=== PATIENT | male | born 1940 | race Caucasian/White ===

== ENCOUNTER 2019-02-23 20:33 | Outpatient (CLI) | payer MEDICARE, OTHER | END 2019-02-23 20:34 | disposition short-term general hospital (02) | LOC: EMS 20:33 | PROVIDERS: ATTEND Surgery | DX: R53.1 Weakness (principal) | CPT/HCPCS: A0425; A0429 ==

== ENCOUNTER 2019-05-03 14:27 | Outpatient (CLI) | payer MEDICARE, OTHER ==
[2019-05-03 14:48] LABS: CALCIUM 9.4 mg/dL (8.5-10.3)
== END 2019-05-03 14:28 | disposition home or self-care (01) ==
LOC: LAB 14:27
PROVIDERS: ATTEND Physician Assistant
DX: E87.5 Hyperkalemia (principal)
CPT/HCPCS: 36415; 80048

== ENCOUNTER 2021-03-01 23:52 | Outpatient (CLI) | payer MEDICARE, OTHER | END 2021-03-01 23:53 | disposition short-term general hospital (02) | LOC: EMS 23:52 | DX: R06.00 Dyspnea, unspecified (principal) | CPT/HCPCS: A0425; A0429; A0888 ==

== ENCOUNTER 2021-05-18 15:49 | Outpatient (CLI) | payer MEDICARE, OTHER | END 2021-05-18 15:50 | disposition home or self-care (01) | LOC: COV 15:49 | PROVIDERS: ATTEND Family Medicine | DX: Z20.822 Contact with and (suspected) exposure to COVID-19 (principal) ==

== ENCOUNTER 2024-01-15 05:28 | Emergency (ER) | payer MEDICARE, OTHER ==
--- NOTE | 2024-01-15 05:40 | ED Physician Documentation ---
PD HPI CHEST PAIN - Stated complaint Stated Complaint: CHEST PX - Chief complaint Chief Complaint: Cardiac - History obtained from History obtained from: Patient - Additional information Additional information: HPI from patient. Patient c/o chest pressure across upper chest since approximately 1 AM this morning. He was at home, awake, and at rest at time of symptoms onset. Pain does not radiate and there are no ameliorating nor exacerbating factors. Denies dyspnea, leg swelling, cough, n/v. PMHx includes [place]. Review of Systems Constitutional: reports: Reviewed and negative Cardiac: reports: Chest pain / pressure. denies: Palpitations, Pedal edema, Calf pain Respiratory: reports: Reviewed and negative GI: reports: Reviewed and negative PD PAST MEDICAL HISTORY - Past Medical History Past Medical History: Yes Cardiovascular: Congestive heart failure, Hypertension, High cholesterol, NE Endocrine/Autoimmune: Type 2 diabetes, HyPOthyroidism - Present Medications Home Medications: Ambulatory Orders Medication Instructions Recorded Confirmed Aspirin [Weld Aspirin] 81 mg PO DAILY 01/15/24 01/15/24 Atorvastatin [Lipitor] 20 mg PO DAILY 01/15/24 01/15/24 Dapagliflozin Propanediol [Farxiga] 5 mg PO DAILY 01/15/24 01/15/24 Finasteride [Proscar] 5 mg PO DAILY 01/15/24 01/15/24 Furosemide [Lasix] 40 mg PO DAILY 01/15/24 01/15/24 Levothyroxine Sodium 1 cap PO DAILY 01/15/24 01/15/24 Metformin HCl [Metformin ER 500 mg PO BID 01/15/24 01/15/24 Osmotic] Sacubitril/Valsartan [Entresto 49 1 tab PO BID 01/15/24 01/15/24 mg-51 mg Tablet] Tamsulosin HCl [Flomax] 0.4 mg PO DAILY 01/15/24 01/15/24 Vitamin B Complex Vit C No.3 [B 1 cap PO DAILY 01/15/24 01/15/24 Complex with Vitamin C] carvediloL [Coreg] 1 tab PO BID 01/15/24 01/15/24 - Allergies Allergies/Adverse Reactions: Allergies Allergy/AdvReac Type Severity Reaction Status Date / Time cephalexin [From Keflex] Allergy Anaphylaxis Verified 01/15/24 05:49 codeine Allergy Rash Verified 01/15/24 05:50 Penicillins Allergy Anaphylaxis Verified 01/15/24 05:49 Sulfa (Sulfonamide Allergy Rash Verified 01/15/24 05:49 Antibiotics) PD ED PE NORMAL - Vitals Vital signs reviewed: Yes - General General: Alert and oriented X 3, No acute distress, Well developed/nourished - HEENT HEENT: Moist mucous membranes - Neck Neck: Supple, no meningeal sign - Cardiac Cardiac: RRR, No murmur, No gallop, No rub - Respiratory Respiratory: No respiratory distress, Clear bilaterally - Abdomen Abdomen: Soft, Non tender - Extremities Extremities: No edema Results - Vitals Vitals: Oxygen O2 Source Room air - EKG (time done) No standard instances EKG releavant findings:: EKG personally interpreted by author of this note. Relevant findings are: Rate: Rate (enter#) (69) Rhythm: NSR [place]: LAD Intervals: Prolonged [place], 1st degree AVB, Wide QRS (NSIVCD) QRS: Normal Ischemia: Normal ST segments, Q waves (II, III, aVF) - Labs Labs: Laboratory Tests 01/15/24 01/15/24 05:45 05:45 WBC 6.0 RBC 4.24 L Hgb 12.6 L Hct 40.4 L MCV 95.3 H MCH 29.7 MCHC 31.2 L RDW 13.5 Plt Count 170 MPV 9.8 Neut # (Auto) 3.2 Lymph # (Auto) 1.8 [place] # (Auto) 0.7 Eos # (Auto) 0.3 Baso # (Auto) 0.0 Absolute Nucleated RBC 0.00 Nucleated RBC % 0.0 Sodium 137 Potassium 4.4 Chloride 104 Carbon Dioxide 25 Anion Gap 8.0 BUN 46 H Creatinine 1.7 H Estimated GFR (MDRD) 39 L Glucose 136 H Calcium 10.2 Total Bilirubin 0.5 AST 14 ALT 10 Alkaline Phosphatase 96 Troponin I High Sens 16.5 Total Protein 7.3 Albumin 4.6 Globulin 2.7 Albumin/Globulin Ratio 1.7 Lipase 157 H - Rads (name of study) chest xray Relevant Findings:: Prelim report reviewed, See rad report PD Medical Decision Making - ED course Complexity details: reviewed results, re-evaluated patient, considered differential, d/w patient ED course: No concerning nor diagnostic findings on EKG, CXR, blood tests. hs-cTn is normal. Mildly elevated BUN/creatinine. In discussing results w/ patient, he says he has stage III CKD and is aware he has an elevated BUN and creatinine. There is only one previous creatinine in [employer] which was normal (1.0) but this was from 2019. Etiology of symptoms is not apparent at this time. Return precautions are reviewed, and I advised him to contact his PCP and [employer] to arrange for followup appointment for reevaluation. Departure - Departure Disposition: Home, Self Care Clinical Impression: Chest pain Qualifiers: Chest pain type: unspecified Qualified Code(s): R07.9 - Chest pain, unspecified Condition: Good Instructions: ED Chest Pain Atypical Unkn Cause Comments: There were no concerning nor diagnostic findings on tonight's test, including the EKG, blood test, and chest x-ray. As we discussed, there were a few abnormalities but none of these findings are concerning from the standpoint of your symptoms (chest pain) nor are they abnormal to an alarming extent. For example, your kidney tests were abnormal (BUN 46, creatinine 1.7). Your EKG had some abnormalities but no indication of an acute problem such as a heart attack or abnormal heart rate/rhythm. At this point, it is safe and appropriate to discharge you from the emergency department, but you should follow up with both your primary care provider and your [employer] Discharge Date/Time: 01/15/24 08:14
[2024-01-15 06:03] LABS: BASOPHILS % (AUTO) 0.5 %; EOSINOPHILS # (AUTO) 0.3 10^3/uL (0.0-0.7); EOSINOPHILS % (AUTO) 4.5 %; HCT - HEMATOCRIT 40.4 % (42.0-52.0); HGB - HEMOGLOBIN 12.6 g/dL (14.0-18.0); LYMPHOCYTES # (AUTO) 1.8 10^3/uL (1.5-3.5); LYMPHOCYTES % (AUTO) 29.5 %; MEAN CORPUSCULAR HEMOGLOBIN 29.7 pg (27.0-31.0); MEAN CORPUSCULAR HGB CONC 31.2 g/dL (32.0-36.0); MEAN CORPUSCULAR VOLUME 95.3 fL (80.0-94.0); MEAN PLATELET VOLUME 9.8 fL (7.4-11.4); MONOCYTES # (AUTO) 0.7 10^3/uL (0.0-1.0); MONOCYTES % (AUTO) 11.8 %; NEUTROPHILS # (AUTO) 3.2 10^3/uL (1.5-6.6); NEUTROPHILS % (AUTO) 53.5 %; PLT - PLATELET COUNT 170 10^3/uL (130-450); RED BLOOD COUNT 4.24 10^6/uL (4.70-6.10); RED CELL DISTRIBUTION WIDTH 13.5 % (12.0-15.0)
[2024-01-15 06:19] LABS: ALBUMIN 4.6 g/dL (3.2-5.5); ALBUMIN/GLOBULIN RATIO 1.7 (1.0-2.2); BILIRUBIN,TOTAL 0.5 mg/dL (0.2-1.0); CALCIUM 10.2 mg/dL (8.5-10.3); CREATININE 1.7 mg/dL (0.6-1.3); POTASSIUM 4.4 mmol/L (3.5-4.5); TOTAL PROTEIN 7.3 g/dL (6.4-8.9)
[2024-01-15 06:24] LABS: TROPONIN I HIGH SENSITIVITY 16.5 ng/L (2.3-19.7)
--- NOTE | 2024-01-15 06:49 | XRAY Report ---
PROCEDURE: Chest 1V INDICATIONS: chest pain TECHNIQUE: One view of the chest was acquired. COMPARISON: None. FINDINGS: Surgical changes and devices: Pacemaker. Lungs and pleura: No pleural effusions or pneumothorax. Lungs are clear. Mediastinum: Mediastinal contours appear normal. Heart size is normal. Bones and chest wall: No suspicious bony lesions. Overlying soft tissues appear unremarkable. IMPRESSION: No acute cardiopulmonary process. Reviewed by: Mirza Rubin MD on 01/15/2024 6:47 AM PDT Approved by: Mirza Rubin MD on 01/15/2024 6:47 AM PDT Station ID: [id number]
[2024-01-15 08:21] VITALS: BP 129/77; O2SAT 95
== END 2024-01-15 08:14 | disposition home or self-care (01) ==
LOC: ED 05:28
DX: R07.9 Chest pain, unspecified (principal); I11.0 Hypertensive heart disease with heart failure; I50.9 Heart failure, unspecified; E11.9 Type 2 diabetes mellitus without complications; Z79.84 Long term (current) use of oral hypoglycemic drugs
CPT/HCPCS: 36415; 80053; 83690; 84484; 85025; 93005; 99284